=== PATIENT | female | born 1960 | race Two or more races ===

== ENCOUNTER 2019-07-03 12:51 | Emergency (ER) | payer OTHER ==
[~2019-07-03] VITALS: Ht 152.4 cm; Wt 80.0 kg
[2019-07-03 12:53] VITALS: BP 120/80
[2019-07-03] MEDS ORDERED: NEOMY/BACITR/POLYMYXIN OINT PACKET. TP ONE (13:45)
[2019-07-03] MEDS ORDERED: HYDR-3164 PO (14:25)
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
== END 2019-07-03 14:35 | disposition home or self-care (01) ==
LOC: ER 12:51
DX: T23.202A Burn of second degree of left hand, unspecified site, initial encounter (principal); X12.XXXA Contact with other hot fluids, initial encounter; Y93.89 Activity, other specified; Y92.89 Other specified places as the place of occurrence of the external cause; Y99.8 Other external cause status
CPT/HCPCS: 16020; 99283

== ENCOUNTER 2019-09-12 07:18 | Emergency (ER) | payer OTHER ==
[~2019-09-12] VITALS: Ht 144.8 cm; Wt 53.0 kg
[~2019-09-12 07:18] MED LIST: HYDR-3164 PO
[2019-09-12 07:32] VITALS: BP 144/71
[2019-09-12] MEDS ORDERED: CLINDAMYCIN IM 600 MG/4 ML VIAL. IM ONE (08:00)
[2019-09-12] MEDS ORDERED: CLIN300C8 PO (08:06)
--- NOTE | 2019-09-12 08:07 | PHYS DOC ---
Past Medical History Past Medical History: No Pertinent History Past Surgical History: No Surgical History Smoking Status: Never Smoker Alcohol Use: None General Adult EDM: Chief Complaint: DENTAL PROBLEM HPI: HPI: Patient is a 59-year-old Pashto female who presents with dental pain. She states she has a lot of pain in her right lower jaw. She denies any fever. She feels like her jaw is swollen. She has had dental infections in the past. [] Review of Systems: Review of Systems: Constitutional: Denies fever or chills. [] Eyes: Denies change in visual acuity. [] HENT: Per HPI [] Respiratory: Denies cough or shortness of breath. [] Cardiovascular: Denies chest pain or edema. [] GI: Denies abdominal pain, nausea, vomiting, bloody stools or diarrhea. [] : Denies dysuria. [] Musculoskeletal: Denies back pain or joint pain. [] Integument: Denies rash. [] Neurologic: Denies headache, focal weakness or sensory changes. [] Endocrine: Denies polyuria or polydipsia. [] Lymphatic: Denies swollen glands. [] Psychiatric: Denies depression or anxiety. [] Heart Score: Risk Factors: Risk Factors: DM, Current or recent (<one month) smoker, HTN, HLP, family history of CAD, obesity. Risk Scores: Score 0 - 3: 2.5% MACE over next 6 weeks - Discharge Home Score 4 - 6: 20.3% MACE over next 6 weeks - Admit for Clinical Observation Score 7 - 10: 72.7% MACE over next 6 weeks - Early Invasive Strategies Current Medications: Current Medications Medications (Trade) Dose Ordered Sig/Nadeem Start Time Stop Time Status Last Admin Dose Admin Clindamycin Phosphate (Cleocin Im) 600 mg 1X ONCE 09/12/19 08:00 09/12/19 08:01 Allergies: Allergies: Allergies Coded Allergies Type Severity Reaction Last Updated Verified No Known Drug Allergies 09/12/19 No Physical Exam: PE: Constitutional: Well developed, well nourished, no acute distress, non-toxic appearance. [] HENT: Chronically poor dentition right lower teeth are carious with surrounding gingival erythema with a very malodorous breath l. [] Eyes: PERRLA, EOMI, conjunctiva normal, no discharge. [] Neck: Normal range of motion, no tenderness, supple, no stridor. [] Cardiovascular:Heart rate regular rhythm, no murmur [] Lungs & Thorax: Bilateral breath sounds clear to auscultation [] Abdomen: Bowel sounds normal, soft, no tenderness, no masses, no pulsatile masses. [] Skin: Warm, dry, no erythema, no rash. [] Back: No tenderness, no CVA tenderness. [] Extremities: No tenderness, no cyanosis, no clubbing, ROM intact, no edema. [] Neurologic: Alert and oriented X 3, normal motor function, normal sensory function, no focal deficits noted. [] Psychologic: Affect normal, judgement normal, mood normal. [] EKG: EKG: [] Radiology/Procedures: Radiology/Procedures: [] Course & Med Decision Making: Course & Med Decision Making Pertinent Labs and Imaging studies reviewed. (See chart for details) [] Dragon Disclaimer: Dragon Disclaimer: This electronic medical record was generated, in whole or in part, using a voice recognition dictation system. Departure Departure Impression: Primary Impression: Dental abscess Additional Impression: Gingivitis, acute Disposition: 01 HOME, SELF-CARE Condition: STABLE Referrals: NO PCP (PCP) Patient Instructions: Dental Abscess, Dental Caries, Gingivitis Additional Instructions: You need to follow-up with a dentist as soon as possible Scripts Clindamycin Hcl (CLINDAMYCIN HCL) 300 Mg Capsule 1 CAP PO TID for Infection, #30 CAP Prov: LAWRENCE RAMON DO 09/12/19 Justicifation of Admission Dx: Justifications for Admission: Justification of Admission Dx: No LAWRENCE RAMON DO Sep 12, 2019 08:07
== END 2019-09-12 08:25 | disposition home or self-care (01) ==
LOC: ER 07:18
DX: K04.7 Periapical abscess without sinus (principal); K05.00 Acute gingivitis, plaque induced; K08.89 Other specified disorders of teeth and supporting structures; L53.9 Erythematous condition, unspecified
CPT/HCPCS: 96372; 99283; J3490